=== PATIENT | male | born 1955 | race Caucasian/White ===

== ENCOUNTER → 2016-08-26 | Outpatient (CLI) | payer OTHER, BC ==
[~2016-08-26] MED LIST: ALEVE LIQUID G220 MG PO; AMBIEN CR12.5 MG PO; AMBIEN10 MG PO; AMITRIPTYLINE H25 MG PO; AMLODIPINE BESYL5 MG PO; ASPIR 8181 M1 PO; Azulfidine PO; BENADRYL25 MG GT; BISAC-EVAC10 MG PR; CEFTIN250 MG GT; CELEBREX200 MG PO; CHANTIX1 MG PO; CHLORASEPTIC177 ML PO; COLACE10 MG/ML GT; COUMADIN3 MG PO; CRESTOR5 MG PO; CYANOCOBAL1000 MCG/2 IM; CYMBALTA30 MG PO; DAYPRO PO; DOCUSATE SODIU100 MG PO; ENDOCET 5-3251 EACH; ENDOCET 5-3251 EACH PO; ENOXAPARIN40 MG/0.4 SC; ERGOCALCIF50000 UNIT PO; Ecotrin PO; FENTANYL1 EAC5 TD; FEOSOL325 MG PO; FERROUS SULFAT325 MG PO; FLUOXETINE HCL20 MG GT; Folvite PO; GABAPENTIN300 MG PO; GLYDO11 ML TP; HEPARIN SO5000 UNITS SQ; HYDROCODON-ACE1 EAC7; HYDROCODON-ACE1 EAC7 PO; JEVITY 1.2 CAL237 ML GT; LIDOCAINE700 MG TD; LIPITOR40 MG GT; LIPITOR40 MG PO; LIPITOR80 MG PO; LO-DOSE ASPIRIN81 M2 GT; LO-DOSE ASPIRIN81 M2 PO; LYRICA50 MG PO; METAXALONE800 MG; MIRALAX17 GM GT; MULTIPLE VITAM1 EACH PO; NAPROXEN SODIU550 MG; NAPROXEN500 MG PO; NICODERM CQ1 EAC2 TP; OMEPRAZOLE20 M2 PO; OMEPRAZOLE40 M1 PO; OXAYDO5 MG PO; OXYCODONE HCL10 MG PO; OXYCODONE HCL5 MG PO; OXYCONTIN10 MG PO; PAIN & FEVER325 MG GT; PANTOPRAZOLE SO40 MG PO; PHENTERMINE HCL15 MG PO; POLYETHYLENE GL17 GM PO; PROTONIX40 MG GT; SENNA PLUS TAB1 EACH PO; SENNA8.6 MG GT; SKELAXIN800 MG PO; Skelaxin PO; TAMSULOSIN HCL0.4 MG PO; TORADOL30 MG/ML IV; VITAMIN D-32000 UNI2 PO; VITAMIN D2 PO; VITAMIN D250000 UNIT PO; XARELTO10 MG PO; [UNRECOGNIZED DRUG - REMARK]
== END | disposition home or self-care (01) ==
DX: R13.10 Dysphagia, unspecified (principal); K21.9 Gastro-esophageal reflux disease without esophagitis; R11.0 Nausea
CPT/HCPCS: 92611 GN; G9163 GN; G9164 GN

== ENCOUNTER 2017-03-31 12:37 | Day surgery (SDC) | payer OTHER, BC ==
[~2017-03-31] VITALS: Ht 182.9 cm; Wt 106.5 kg
[~2017-03-31 12:37] MED LIST changes: +ACLOVATE15 G1 TP; +BIOFREEZE TP; +CLINDAMYCIN HC150 MG PO; +CYANOCOBALAM1000 MCG PO; +CYMBALTA60 MG PO; +DULCOLAX5 MG PO; +MELATONIN5 M1 PO; +METAXALONE400 MG PO; +MIRALAX255 GM PO; +MOVANTIK25 MG PO; +MULTIVITAMIN1 EAC2 PO; +NEURONTIN600 MG PO; +NICODERM CQ1 EAC2 TD; +OXYCODONE-ACET1 EACH PO; +PRILOSEC20 MG PO; +SENEXON-S TABL1 EACH PO; +SYSTANE GEL EYE10 ML BOTH EYES; +TRAZODONE HCL50 MG PO; +TRIAMCINOLONE A15 GM TP; +TYLENOL REGULA325 MG PO; +VOLTAREN 1% GE100 GM TP; +ZANAFLEX4 M1 PO
== END 2017-03-31 14:59 | disposition home or self-care (01) ==
LOC: PAIN 12:37 → SDC 13:00 → PAIN 13:00
DX: M47.812 Spondylosis without myelopathy or radiculopathy, cervical region (principal); G89.29 Other chronic pain; I10 Essential (primary) hypertension; I69.359 Hemiplegia and hemiparesis following cerebral infarction affecting unspecified side; E78.5 Hyperlipidemia, unspecified; K21.9 Gastro-esophageal reflux disease without esophagitis; Z79.82 Long term (current) use of aspirin; Z79.891 Long term (current) use of opiate analgesic; Z87.891 Personal history of nicotine dependence
CPT/HCPCS: J1030; J2250; J3010; S0020

== ENCOUNTER 2017-06-23 09:07 | Day surgery (SDC) | payer OTHER, BC ==
[~2017-06-23] VITALS: Ht 182.9 cm; Wt 115.6 kg
[~2017-06-23 09:07] MED LIST changes: +KENALOG,ARISTOC60 ML TP; +MELATONIN10 M2 PO; -MELATONIN5 M1 PO; +VITAMIN D32000 UNI1 PO
== END 2017-06-23 10:40 | disposition home or self-care (01) ==
LOC: PAIN 09:07 → SDC 10:00 → PAIN 10:40
PROC: 01513ZZ Destruction of Cervical Nerve, Percutaneous Approach (ICD-10-PCS; principal; 2017-06-23)
PROC: BR141ZZ Fluoroscopy of Cervical Facet Joint(s) using Low Osmolar Contrast (ICD-10-PCS; principal; 2017-06-23)
DX: M47.812 Spondylosis without myelopathy or radiculopathy, cervical region (principal); M96.1 Postlaminectomy syndrome, not elsewhere classified; Z98.1 Arthrodesis status; M51.36 Other intervertebral disc degeneration, lumbar region; I69.398 Other sequelae of cerebral infarction; I69.359 Hemiplegia and hemiparesis following cerebral infarction affecting unspecified side; M79.2 Neuralgia and neuritis, unspecified; G89.29 Other chronic pain; M06.9 Rheumatoid arthritis, unspecified; F17.200 Nicotine dependence, unspecified, uncomplicated; I10 Essential (primary) hypertension; E78.5 Hyperlipidemia, unspecified; Z88.0 Allergy status to penicillin; Z88.5 Allergy status to narcotic agent; Z88.8 Allergy status to other drugs, medicaments and biological substances
CPT/HCPCS: J1030; J2250; J3010; S0020

== ENCOUNTER 2017-10-04 12:21 | Inpatient (IN) | payer OTHER, BC ==
[~2017-10-04] VITALS: Ht 165.1 cm; Wt 114.6 kg
[2017-10-04 14:25] LABS: HEMATOCRIT 40.4 % (38.0-50.0); HEMOGLOBIN 13.2 G/DL (12.5-16.6); MCH 28.8 PG (29.0-34.0); MCHC 32.7 G/DL (30.0-36.0); MCV 88.2 FL (86-99); PLATELET COUNT 155 K/uL (156-360); RBC DIS.WIDTH-CV 13.2 % (11.8-14.6); RBC DIS.WIDTH-SD 42.8 % (39-53); RED BLOOD COUNT 4.58 M/uL (4.00-5.50); WHITE BLOOD COUNT 8.2 K/uL (4.1-10.2)
[2017-10-04 14:37] LABS: CHLORIDE 97 mEq/L (99-109); POTASSIUM 3.7 mEq/L (3.7-5.4); SODIUM 134 mEq/L (136-147)
[2017-10-04 14:38] LABS: GLUCOSE 130 mg/dL (70-99)
[2017-10-04 14:42] LABS: CREATININE 0.8 mg/dL (0.6-1.3); GFR ESTIMATE (CALCULATED) > 59 mL/min/ (58.99-99999)
[2017-10-04 14:43] LABS: UREA NITROGEN (BUN) 11 mg/dL (9-23)
[2017-10-04 14:51] LABS: TROP-I INTERPRETATION NEGATIVE; TROPONIN-I < 0.01 ng/mL (0.0-0.30)
[2017-10-04] MEDS ORDERED: LINZESS290 MCG PO (15:04)
[2017-10-04] MEDS ORDERED: SYSTANE ULTRA 015 ML BOTH EYES (15:04)
[2017-10-04] MEDS ORDERED: COLACE100 MG PO (15:11)
[2017-10-04] MEDS ORDERED: SENEXON8.6 MG PO (15:12)
[2017-10-04 15:33] LABS: CARBON DIOXIDE (BICARBONATE) 29.7 MEQ/L (20-31)
[2017-10-04 15:56] LABS: APPEARANCE CLOUDY ((CLEAR)); BILIRUBIN NEGATIVE; BLOOD NEGATIVE; COLOR AMBER ((YELLOW)); GLUCOSE (STRIP) NEGATIVE; KETONES NEGATIVE; LEUKOCYTES NEGATIVE; NITRITE NEGATIVE; PROTEIN (STRIP) 100; SPECIFIC GRAVITY 1.026 (1.000-1.030)
[2017-10-04 16:21] LABS: BACTERIA 2+ /HPF; EPITHELIAL CELLS 1+ /HPF; MUCUS 3+ /LPF; RED BLOOD CELLS 0-5 /HPF (0-5); WHITE BLOOD CELLS 0-5 /HPF (0-5)
[2017-10-04 18:18] VITALS: BP 147/67
[2017-10-04 20:47] VITALS: BP 132/60
[2017-10-05] VITALS: BP 111/55
[2017-10-05 05:51] VITALS: BP 120/56
[2017-10-05 07:27] LABS: BASOPHIL (%) 0.3 % (0-1); EOSINOPHIL (%) 0.5 % (0-5); HEMATOCRIT 38.4 % (38.0-50.0); HEMOGLOBIN 12.3 G/DL (12.5-16.6); IMMATURE GRANULOCYTE (%) 0.5 % (0.0-0.7); LYMPHOCYTE (%) 12.5 % (15-42); LYMPHOCYTE COUNT 0.8 K/uL (1.0-2.8); MCV 87.3 FL (86-99); MONOCYTE (%) 14.1 % (3-12); MONOCYTE COUNT 0.9 K/uL (0-0.8); NEUTROPHIL (%) 72.1 % (45-76); NEUTROPHIL COUNT 4.5 K/uL (1.8-6.4); PLATELET COUNT 155 K/uL (156-360); RBC DIS.WIDTH-CV 13.2 % (11.8-14.6); RBC DIS.WIDTH-SD 42.5 % (39-53); WHITE BLOOD COUNT 6.2 K/uL (4.1-10.2)
[2017-10-05 07:52] LABS: CHLORIDE 102 MEQ/L (99-109); CREATININE 0.7 MG/DL (0.6-1.3); GFR ESTIMATE (CALCULATED) > 59 mL/min/ (58.99-99999); GLUCOSE 124 mg/dL (70-99); POTASSIUM 3.4 MEQ/L (3.7-5.4); SODIUM 133 MEQ/L (136-147); UREA NITROGEN (BUN) 7 mg/dL (9-23)
[2017-10-05 08:16] VITALS: BP 121/58
[2017-10-05 12:23] VITALS: BP 119/56
[2017-10-05 16:39] VITALS: BP 119/59
[2017-10-05 20:02] VITALS: BP 137/62
[2017-10-06] VITALS: BP 129/64
[2017-10-06 04:05] VITALS: BP 122/59
[2017-10-06 07:53] VITALS: BP 127/64
[2017-10-06 12:11] VITALS: BP 150/56
[2017-10-06 15:18] VITALS: BP 105/61
[2017-10-06 20:06] VITALS: BP 124/60
[2017-10-07 00:23] VITALS: BP 134/63
[2017-10-07 04:05] VITALS: BP 128/76
[2017-10-07 05:45] LABS: CHLORIDE 98 MEQ/L (99-109); CREATININE 0.7 MG/DL (0.6-1.3); GFR ESTIMATE (CALCULATED) > 59 mL/min/ (58.99-99999); GLUCOSE 134 mg/dL (70-99); POTASSIUM 4.4 MEQ/L (3.7-5.4); SODIUM 139 MEQ/L (136-147); UREA NITROGEN (BUN) 5 mg/dL (9-23)
[2017-10-07 08:14] VITALS: BP 132/69
[2017-10-07 16:12] VITALS: BP 130/64
[2017-10-07] MEDS ORDERED: ALBUTEROL2.5 MG/0.5 AEROSOL (16:14)
[2017-10-07] MEDS ORDERED: DUONEB 2.5-0.5 M3 ML AEROSOL (16:14)
[2017-10-07] MEDS ORDERED: CEFDINIR300 MG PO (16:16)
== END 2017-10-07 18:58 | DRG 178 ==
LOC: EME 12:21 → EDOF 15:19 → 5SOUTH 15:19 → ENRESERV 15:20 → 5SOUTH 17:37
PROVIDERS: Emergency Medicine; Hospitalist; Physician Assistant Medical
DX: J69.0 Pneumonitis due to inhalation of food and vomit (principal); J44.1 Chronic obstructive pulmonary disease with (acute) exacerbation; R11.2 Nausea with vomiting, unspecified; E87.6 Hypokalemia; I69.354 Hemiplegia and hemiparesis following cerebral infarction affecting left non-dominant side; I10 Essential (primary) hypertension; K21.9 Gastro-esophageal reflux disease without esophagitis; G89.29 Other chronic pain; M54.9 Dorsalgia, unspecified; E66.9 Obesity, unspecified; Z68.41 Body mass index [BMI] 40.0-44.9, adult; N40.0 Benign prostatic hyperplasia without lower urinary tract symptoms; M06.9 Rheumatoid arthritis, unspecified; M19.90 Unspecified osteoarthritis, unspecified site; M62.838 Other muscle spasm; F32.9 Major depressive disorder, single episode, unspecified; F17.200 Nicotine dependence, unspecified, uncomplicated; Z71.6 Tobacco abuse counseling; Z96.652 Presence of left artificial knee joint; Z98.1 Arthrodesis status; Z99.3 Dependence on wheelchair; Z79.82 Long term (current) use of aspirin; Z79.891 Long term (current) use of opiate analgesic; Z88.0 Allergy status to penicillin; Z82.49 Family history of ischemic heart disease and other diseases of the circulatory system; Z82.3 Family history of stroke
CPT/HCPCS: 71045; 71046; 74230; 80048; 81003; 82803; 82948; 83605; 83880; 84484; 85025; 85027; 87040; 87070; 87086; 87205; 87449; 93005; 94640; 94640 76; 94667; 94668; 94799; 99202; 99281; 99285; J0456; J0696; J1650; J1956; J2405; J7030